=== PATIENT | female | born 1975 | race Caucasian/White ===

== ENCOUNTER 2016-07-11 12:26 | Outpatient (CLI) | payer OTHER | END 2016-07-11 12:27 | disposition home or self-care (01) | DX: Z00.00 Encounter for general adult medical examination without abnormal findings (principal) ==

== ENCOUNTER 2016-09-14 09:38 | Outpatient (CLI) | payer OTHER | END 2016-09-14 23:59 | DX: L40.50 Arthropathic psoriasis, unspecified (principal); Z79.899 Other long term (current) drug therapy ==

== ENCOUNTER 2017-02-25 07:46 | Outpatient (CLI) | payer OTHER ==
[2017-02-25] MEDS ORDERED: GADOBUTROL 10 MMOL/10 ML VIAL ONE (07:59)
[2017-02-25] MEDS ORDERED: GADOBUTROL 10 MMOL/10 ML VIAL IVP ONE (08:26)
--- NOTE | 2017-02-25 15:23 | MRI Report ---
EXAM: MRI BRAIN WITHOUT AND WITH CONTRAST EXAM DATE: 02/25/2017 08:54 AM. CLINICAL HISTORY: NEUROPATHY. Blurred vision and episodes of tingling. Clinical concern is indicated on the requisition for multiple sclerosis. COMPARISON: None. TECHNIQUE: Multiplanar, multisequence T1-weighted and fluid-sensitive MR sequences of the brain were performed. Sequences optimized for White matter evaluation. Other: None. Without and with IV Contrast : Without and with 8.5 mL Gadavist. FINDINGS: Brain Volume: Normal for age. Parenchyma/Dura: No acute hemorrhage, mass, or acute infarct. No white matter lesions identified. Ventricles/Cisterns: No hydrocephalus. Sinuses: No acute appearing sinus disease. Bones: Normal. Other: None. IMPRESSION: Normal brain MRI. No MRI evidence for demyelinating disease. [facility] Referring Provider Line: [phone] SITE ID: [id number]
== END 2017-02-25 07:47 | disposition home or self-care (01) ==
LOC: DI 07:46
PROVIDERS: ATTEND Physician Assistant Medical
DX: G62.9 Polyneuropathy, unspecified (principal)
CPT/HCPCS: 70553; A9585

== ENCOUNTER 2017-08-31 08:00 | Outpatient (CLI) | payer BC, OTHER ==
[2017-08-31 12:37] LABS: CHOL/HDL RATIO 3.6 (<4.4); CHOLESTEROL 218 mg/dL; HDL CHOLESTEROL 60 mg/dL; LDL CHOLESTEROL,CALCULATED 144 mg/dL; LDL/HDL RATIO 2.4 (<4.4); VLDL CHOLESTEROL 14 mg/dL
== END 2017-08-31 08:01 ==
LOC: LAB.WCP 08:00
PROVIDERS: ATTEND Physician Assistant Medical
DX: Z00.00 Encounter for general adult medical examination without abnormal findings (principal)
CPT/HCPCS: 36415; 80061; 83721

== ENCOUNTER 2017-09-08 07:04 | Outpatient (CLI) | payer BC ==
[2017-09-08 12:52] LABS: BASOPHILS % (AUTO) 0.4 %; EOSINOPHILS # (AUTO) 0.1 10^3/uL (0.0-0.7); HGB - HEMOGLOBIN 13.5 g/dL (12.0-16.0); LYMPHOCYTES # (AUTO) 2.3 10^3/uL (1.5-3.5); LYMPHOCYTES % (AUTO) 27.8 %; MEAN CORPUSCULAR HEMOGLOBIN 30.9 pg (27.0-31.0); MEAN CORPUSCULAR HGB CONC 33.4 g/dL (32.0-36.0); MEAN CORPUSCULAR VOLUME 92.6 fL (81.0-99.0); MONOCYTES # (AUTO) 0.5 10^3/uL (0.0-1.0); MONOCYTES % (AUTO) 6.5 %; NEUTROPHILS # (AUTO) 5.2 10^3/uL (1.5-6.6); NEUTROPHILS % (AUTO) 64.3 %; PLT - PLATELET COUNT 322 10^3/uL (130-450); RED BLOOD COUNT 4.38 10^6/uL (4.20-5.40); RED CELL DISTRIBUTION WIDTH 13.3 % (12.0-15.0); WHITE BLOOD COUNT 8.2 x10^3/uL (4.8-10.8)
[2017-09-08 13:11] LABS: ALBUMIN 4.2 g/dL (3.2-5.5); ALBUMIN/GLOBULIN RATIO 1.4 (1.0-2.2); ALKALINE PHOSPHATASE 56 IU/L (42-121); ALT ALANINE AMINOTRANSFERASE 18 IU/L (10-60); AST ASPARTATE AMINOTRANSFERASE 16 IU/L (10-42); BILIRUBIN,TOTAL 1.1 mg/dL (0.2-1.0); BUN - BLOOD UREA NITROGEN 5 mg/dL (6-20); CALCIUM 9.2 mg/dL (8.5-10.3); CARBON DIOXIDE - CO2 24 mmol/L (21-32); CHLORIDE 105 mmol/L (101-111); CREATININE 0.6 mg/dL (0.4-1.0); GFR - MDRD 110 (>89); GLUCOSE 99 mg/dL (70-100); SODIUM 136 mmol/L (135-145); TOTAL PROTEIN 7.3 g/dL (6.7-8.2)
[2017-09-08 13:15] LABS: CRP - C-REACTIVE PROTEIN < 1.0 mg/dL (0-1.0)
== END 2017-09-08 07:05 | disposition home or self-care (01) ==
LOC: LAB.WCP 07:04
PROVIDERS: ATTEND Internal Medicine Rheumatology
DX: L40.50 Arthropathic psoriasis, unspecified (principal); Z79.899 Other long term (current) drug therapy
CPT/HCPCS: 36415; 80053; 85025; 86140

== ENCOUNTER 2017-12-24 20:09 | Emergency (ER) | payer BC ==
[2017-12-24 20:28] VITALS: BP 131/86
[2017-12-24] MEDS ORDERED: BUFFERED LIDOCAINE 10 ML SYRINGE SUBQ STA (20:58)
--- NOTE | 2017-12-24 21:00 | ED Physician Documentation ---
PD HPI UPPER EXT INJURY - Stated complaint Stated Complaint: THUMB LAC - Chief complaint Chief Complaint: Laceration - History obtained from History obtained from: Patient - History of Present Illness Location: Right, Finger Type of injury: Laceration (on a mandolin slicer at home) Review of Systems Constitutional: reports: Reviewed and negative Ears: reports: Reviewed and negative Throat: reports: Reviewed and negative PD PAST MEDICAL HISTORY - Present Medications Home Medications: Ambulatory Orders Medication Instructions Recorded Confirmed Adalimumab [Humira] 12/24/17 Bupropion HCl [Bupropion HCl Sr] 12/24/17 Methotrexate Sodium/Pf mg IJ 12/24/17 [Methotrexate 25 mg/ml Vial] Naltrexone HCl 12/24/17 - Allergies Allergies/Adverse Reactions: Allergies Allergy/AdvReac Type Severity Reaction Status Date / Time No Known Drug Allergies Allergy Verified 12/24/17 20:28 PD ED PE NORMAL - Vitals Vital signs reviewed: Yes - General General: Alert and oriented X 3, No acute distress - Extremities Extremities: Other (There is a flap laceration measuring a centimeter on the radial side of the tip of the right thumb.) - Neuro Neuro: Alert and oriented X 3, Normal speech Results - Vitals Vitals: Vital Signs - 24 hr 12/24/17 20:26 Temperature 36.8 C Heart Rate 75 Respiratory 18 Rate Blood Pressure 131/86 H O2 Saturation 98 Oxygen O2 Source Room air Procedures - Laceration (location) R thumb Length in cm: 1 Wound type: Curved, Flap Neurovascular status: Sensory intact, Motor intact, Vascular intact Anesthesia: Lidocaine 1%, With bicarb Wound Preparation: Hibiclens, Irrigated copiously NS Skin layer closure: Nylon, Interrupted, Size #-0 - enter number (5-0), Sutures - enter # (3) Other: Tetanus UTD Complexity: Simple PD MEDICAL DECISION MAKING - Sepsis Event Vital Signs: Vital Signs - 24 hr 12/24/17 20:26 Temperature 36.8 C Heart Rate 75 Respiratory 18 Rate Blood Pressure 131/86 H O2 Saturation 98 Oxygen O2 Source Room air Departure - Departure Disposition: 01 Home, Self Care Clinical Impression: Laceration Condition: Good Record reviewed to determine appropriate education?: Yes Instructions: ED Laceration Hand Comments: Come back for any signs of infection which would include: Redness, swelling, drainage, increased pain, or fevers. Follow-up with your physician in 14 days for suture removal. Your blood pressure was elevated today on check into the emergency department. This does not mean that you have hypertension, it is a common phenomenon to come to the emergency department and have elevated blood pressure. I recommend that you see your primary care physician within the week to have it rechecked when you are feeling better.
== END 2017-12-24 21:51 | disposition home or self-care (01) ==
LOC: ED 20:09
DX: S61.011A Laceration without foreign body of right thumb without damage to nail, initial encounter (principal); W26.0XXA Contact with knife, initial encounter; Y92.009 Unspecified place in unspecified non-institutional (private) residence as the place of occurrence of the external cause; R03.0 Elevated blood-pressure reading, without diagnosis of hypertension
CPT/HCPCS: 12001; 99282; 99283

== ENCOUNTER 2018-01-12 14:29 | Outpatient (CLI) | payer BC ==
[2018-01-12 19:10] LABS: BASOPHILS # (AUTO) 0.1 10^3/uL (0.0-0.1); BASOPHILS % (AUTO) 0.5 %; EOSINOPHILS # (AUTO) 0.1 10^3/uL (0.0-0.7); EOSINOPHILS % (AUTO) 0.7 %; HGB - HEMOGLOBIN 13.5 g/dL (12.0-16.0); LYMPHOCYTES # (AUTO) 2.8 10^3/uL (1.5-3.5); LYMPHOCYTES % (AUTO) 24.1 %; MEAN CORPUSCULAR HEMOGLOBIN 30.8 pg (27.0-31.0); MEAN CORPUSCULAR HGB CONC 33.2 g/dL (32.0-36.0); MEAN CORPUSCULAR VOLUME 92.6 fL (81.0-99.0); MONOCYTES # (AUTO) 0.7 10^3/uL (0.0-1.0); MONOCYTES % (AUTO) 5.6 %; NEUTROPHILS % (AUTO) 69.1 %; PLT - PLATELET COUNT 324 10^3/uL (130-450); RED BLOOD COUNT 4.39 10^6/uL (4.20-5.40); RED CELL DISTRIBUTION WIDTH 13.6 % (12.0-15.0); WHITE BLOOD COUNT 11.5 x10^3/uL (4.8-10.8)
[2018-01-12 19:36] LABS: ALBUMIN 4.3 g/dL (3.2-5.5); ALBUMIN/GLOBULIN RATIO 1.3 (1.0-2.2); ALKALINE PHOSPHATASE 55 IU/L (42-121); ALT ALANINE AMINOTRANSFERASE 23 IU/L (10-60); AST ASPARTATE AMINOTRANSFERASE 19 IU/L (10-42); BILIRUBIN,TOTAL 0.7 mg/dL (0.2-1.0); BUN - BLOOD UREA NITROGEN 10 mg/dL (6-20); CALCIUM 9.2 mg/dL (8.5-10.3); CARBON DIOXIDE - CO2 26 mmol/L (21-32); CHLORIDE 103 mmol/L (101-111); CREATININE 0.8 mg/dL (0.4-1.0); GFR - MDRD 79 (>89); GLUCOSE 114 mg/dL (70-100); SODIUM 137 mmol/L (135-145); TOTAL PROTEIN 7.5 g/dL (6.7-8.2)
[2018-01-12 20:31] LABS: CRP - C-REACTIVE PROTEIN < 1.0 mg/dL (0-1.0)
== END 2018-01-12 14:30 | disposition home or self-care (01) ==
LOC: LAB.WCP 14:29
PROVIDERS: ATTEND Internal Medicine Rheumatology
DX: L40.50 Arthropathic psoriasis, unspecified (principal); Z79.899 Other long term (current) drug therapy
CPT/HCPCS: 36415; 80053; 85025; 86140

== ENCOUNTER 2018-07-16 08:43 | Outpatient (CLI) | payer BC ==
[2018-07-16 12:34] LABS: BASOPHILS % (AUTO) 0.4 %; EOSINOPHILS # (AUTO) 0.1 10^3/uL (0.0-0.7); EOSINOPHILS % (AUTO) 0.6 %; HGB - HEMOGLOBIN 13.8 g/dL (12.0-16.0); LYMPHOCYTES # (AUTO) 2.6 10^3/uL (1.5-3.5); LYMPHOCYTES % (AUTO) 28.8 %; MEAN CORPUSCULAR HEMOGLOBIN 30.9 pg (27.0-31.0); MEAN CORPUSCULAR HGB CONC 33.7 g/dL (32.0-36.0); MEAN CORPUSCULAR VOLUME 91.9 fL (81.0-99.0); MEAN PLATELET VOLUME 9.9 fL (7.9-10.8); MONOCYTES # (AUTO) 0.7 10^3/uL (0.0-1.0); MONOCYTES % (AUTO) 7.4 %; NEUTROPHILS # (AUTO) 5.6 10^3/uL (1.5-6.6); NEUTROPHILS % (AUTO) 62.8 %; PLT - PLATELET COUNT 338 10^3/uL (130-450); RED BLOOD COUNT 4.46 10^6/uL (4.20-5.40); RED CELL DISTRIBUTION WIDTH 13.4 % (12.0-15.0)
[2018-07-16 12:58] LABS: ALBUMIN/GLOBULIN RATIO 1.3 (1.0-2.2); ALKALINE PHOSPHATASE 51 IU/L (42-121); ALT ALANINE AMINOTRANSFERASE 16 IU/L (10-60); AST ASPARTATE AMINOTRANSFERASE 17 IU/L (10-42); BILIRUBIN,TOTAL 1.1 mg/dL (0.2-1.0); BUN - BLOOD UREA NITROGEN 11 mg/dL (6-20); CARBON DIOXIDE - CO2 26 mmol/L (21-32); CHLORIDE 102 mmol/L (101-111); CREATININE 0.6 mg/dL (0.4-1.0); GFR - MDRD 110 (>89); GLUCOSE 96 mg/dL (70-100); SODIUM 136 mmol/L (135-145); TOTAL PROTEIN 7.2 g/dL (6.7-8.2)
[2018-07-16 13:02] LABS: CRP - C-REACTIVE PROTEIN < 1.0 mg/dL (0-1.0)
== END 2018-07-16 08:44 ==
LOC: LAB.WCP 08:43
PROVIDERS: ATTEND Internal Medicine Rheumatology
DX: L40.50 Arthropathic psoriasis, unspecified (principal); Z79.899 Other long term (current) drug therapy
CPT/HCPCS: 36415; 80053; 85025; 86140

== ENCOUNTER 2018-12-04 08:53 | Outpatient (CLI) | payer BC ==
--- NOTE | 2018-12-05 09:12 | Mammography Report ---
Reason: SCREENING MAMMO Procedure Date: 12/04/2018 Accession Number: [id number] / [id number] Procedure: MGN - Screening Mammo Dig Bilat CPT Code: FULL RESULT: EXAM: Screening Mammo Dig Bilat DATE: 12/04/2018 9:25 AM CLINICAL HISTORY: Screening encounter. No reported risk factors. Baseline mammogram. TECHNIQUE: (B) - Bilateral CC and MLO views were obtained. COMPARISON: None PARENCHYMAL PATTERN: (D) - The breast(s) demonstrate(s) heterogeneously dense fibroglandular parenchyma. FINDINGS: There are no suspicious masses, calcifications, or areas of distortion. IMPRESSION: Negative examination. BI-RADS category 1. RECOMMENDATION: (ANNUAL) - Recommend routine annual screening mammography. BI-RADS CATEGORY: (1) - Negative. STANDARD QUALIFYING STATEMENTS: 1. This examination was not reviewed with the aid of Computer-Aided Detection (CAD). 2. A negative or benign imaging report should not preclude biopsy if clinically suspicious findings are present. 3. Dense breasts may obscure an underlying neoplasm. 4. This examination was reviewed without the aid of 3D breast imaging (tomosynthesis).
== END 2018-12-04 08:54 | disposition home or self-care (01) ==
LOC: DI.N 08:53
DX: Z12.31 Encounter for screening mammogram for malignant neoplasm of breast (principal)
CPT/HCPCS: 77067

== ENCOUNTER 2018-12-27 08:00 | Outpatient (CLI) | payer BC ==
[2018-12-27 13:28] LABS: H. PYLORIS ANTIGEN STL NEGATIVE (Negative)
== END 2018-12-27 23:59 | disposition home or self-care (01) ==
LOC: LAB.WCP 08:00
PROVIDERS: ATTEND Physician Assistant Medical
DX: K21.9 Gastro-esophageal reflux disease without esophagitis (principal)
CPT/HCPCS: 87338

== ENCOUNTER 2019-02-18 08:00 | Outpatient (CLI) | payer BC ==
[2019-02-18 12:31] LABS: BASOPHILS % (AUTO) 0.4 %; EOSINOPHILS # (AUTO) 0.1 10^3/uL (0.0-0.7); EOSINOPHILS % (AUTO) 1.4 %; HGB - HEMOGLOBIN 13.8 g/dL (12.0-16.0); LYMPHOCYTES # (AUTO) 2.7 10^3/uL (1.5-3.5); LYMPHOCYTES % (AUTO) 33.9 %; MEAN CORPUSCULAR HEMOGLOBIN 30.6 pg (27.0-31.0); MEAN CORPUSCULAR HGB CONC 31.7 g/dL (32.0-36.0); MEAN CORPUSCULAR VOLUME 96.7 fL (81.0-99.0); MEAN PLATELET VOLUME 11.9 fL (7.9-10.8); MONOCYTES # (AUTO) 0.5 10^3/uL (0.0-1.0); MONOCYTES % (AUTO) 6.8 %; NEUTROPHILS # (AUTO) 4.6 10^3/uL (1.5-6.6); NEUTROPHILS % (AUTO) 57.2 %; PLT - PLATELET COUNT 359 10^3/uL (130-450); RED BLOOD COUNT 4.51 10^6/uL (4.20-5.40); WHITE BLOOD COUNT 7.9 x10^3/uL (4.8-10.8)
[2019-02-18 12:55] LABS: ALBUMIN 4.4 g/dL (3.2-5.5); ALBUMIN/GLOBULIN RATIO 1.5 (1.0-2.2); ALKALINE PHOSPHATASE 53 IU/L (42-121); ALT ALANINE AMINOTRANSFERASE 16 IU/L (10-60); AST ASPARTATE AMINOTRANSFERASE 16 IU/L (10-42); BILIRUBIN,TOTAL 0.6 mg/dL (0.2-1.0); BUN - BLOOD UREA NITROGEN 17 mg/dL (6-20); CALCIUM 9.3 mg/dL (8.5-10.3); CARBON DIOXIDE - CO2 28 mmol/L (21-32); CHLORIDE 105 mmol/L (101-111); CREATININE 0.7 mg/dL (0.4-1.0); GFR - MDRD 92 (>89); GLUCOSE 103 mg/dL (70-100); SODIUM 138 mmol/L (135-145); TOTAL PROTEIN 7.4 g/dL (6.7-8.2)
[2019-02-18 12:58] LABS: CRP - C-REACTIVE PROTEIN < 1.0 mg/dL (0-1.0)
== END 2019-02-18 23:59 | disposition home or self-care (01) ==
LOC: LAB.WCP 08:00
PROVIDERS: ATTEND Internal Medicine Rheumatology
DX: L40.50 Arthropathic psoriasis, unspecified (principal); Z79.899 Other long term (current) drug therapy
CPT/HCPCS: 36415; 80053; 85025; 86140

== ENCOUNTER 2019-05-29 07:51 | Outpatient (CLI) | payer BC, OTHER ==
[2019-05-29 12:52] LABS: ALBUMIN 4.5 g/dL (3.2-5.5); ALBUMIN/GLOBULIN RATIO 1.6 (1.0-2.2); ALKALINE PHOSPHATASE 48 IU/L (42-121); ALT ALANINE AMINOTRANSFERASE 20 IU/L (10-60); AST ASPARTATE AMINOTRANSFERASE 22 IU/L (10-42); BILIRUBIN,TOTAL 1.6 mg/dL (0.2-1.0); BUN - BLOOD UREA NITROGEN 10 mg/dL (6-20); CALCIUM 9.1 mg/dL (8.5-10.3); CARBON DIOXIDE - CO2 25 mmol/L (21-32); CHLORIDE 106 mmol/L (101-111); CHOL/HDL RATIO 4.2 (<4.4); CHOLESTEROL 218 mg/dL; CREATININE 0.8 mg/dL (0.4-1.0); GFR - MDRD 79 (>89); GLUCOSE 96 mg/dL (70-100); HDL CHOLESTEROL 52 mg/dL; LDL CHOLESTEROL,CALCULATED 151 mg/dL; LDL/HDL RATIO 2.9 (<4.4); SODIUM 140 mmol/L (135-145); TOTAL PROTEIN 7.3 g/dL (6.7-8.2); VLDL CHOLESTEROL 15 mg/dL
== END 2019-05-29 23:59 | disposition home or self-care (01) ==
LOC: LAB.WCP 07:51
PROVIDERS: ATTEND Physician Assistant Medical
DX: Z00.00 Encounter for general adult medical examination without abnormal findings (principal); E78.5 Hyperlipidemia, unspecified
CPT/HCPCS: 36415; 80053; 80061; 83721

== ENCOUNTER 2019-10-02 13:00 | Outpatient (CLI) | payer OTHER | END 2019-10-02 23:59 | disposition home or self-care (01) | LOC: LAB.R 13:00 | PROVIDERS: ATTEND Physician Assistant Medical | DX: R10.2 Pelvic and perineal pain (principal) | CPT/HCPCS: 87086 ==

== ENCOUNTER 2019-12-23 08:00 | Outpatient (CLI) | payer OTHER ==
[2019-12-23 18:12] LABS: BASOPHILS # (AUTO) 0.1 10^3/uL (0.0-0.1); BASOPHILS % (AUTO) 0.7 %; EOSINOPHILS # (AUTO) 0.1 10^3/uL (0.0-0.7); EOSINOPHILS % (AUTO) 0.7 %; HGB - HEMOGLOBIN 12.3 g/dL (12.0-16.0); LYMPHOCYTES # (AUTO) 3.6 10^3/uL (1.5-3.5); LYMPHOCYTES % (AUTO) 39.3 %; MEAN CORPUSCULAR HEMOGLOBIN 30.4 pg (27.0-31.0); MEAN PLATELET VOLUME 11.9 fL (7.9-10.8); MONOCYTES # (AUTO) 0.6 10^3/uL (0.0-1.0); MONOCYTES % (AUTO) 6.2 %; NEUTROPHILS # (AUTO) 4.9 10^3/uL (1.5-6.6); NEUTROPHILS % (AUTO) 52.7 %; PLT - PLATELET COUNT 288 10^3/uL (130-450); RED BLOOD COUNT 4.04 10^6/uL (4.20-5.40); RED CELL DISTRIBUTION WIDTH 12.7 % (12.0-15.0); WHITE BLOOD COUNT 9.2 x10^3/uL (4.8-10.8)
[2019-12-23 18:40] LABS: ALBUMIN 4.3 g/dL (3.2-5.5); ALBUMIN/GLOBULIN RATIO 1.7 (1.0-2.2); BILIRUBIN,TOTAL 1.1 mg/dL (0.2-1.0); CALCIUM 9.3 mg/dL (8.5-10.3); CREATININE 0.6 mg/dL (0.4-1.0); TOTAL PROTEIN 6.9 g/dL (6.7-8.2)
== END 2019-12-23 23:59 | disposition home or self-care (01) ==
LOC: LAB.WCP 08:00
PROVIDERS: ATTEND Physician Assistant Medical
DX: L40.50 Arthropathic psoriasis, unspecified (principal)
CPT/HCPCS: 36415; 80053; 85025; 85651; 87086

== ENCOUNTER 2020-03-18 15:02 | Outpatient (CLI) | payer OTHER ==
--- NOTE | 2020-03-18 16:13 | XRAY Report ---
PROCEDURE: Tib/Fib LT INDICATIONS: LEG PAIN,LEFT TECHNIQUE: 2 views of the tibia and fibula were acquired. COMPARISON: None FINDINGS: Bones: No fractures or dislocations. No suspicious bony lesions. Soft tissues: No suspicious soft tissue calcifications or masses. IMPRESSION: Normal for age, source of current symptoms is not seen. Reviewed by: Ronnie Dunlap MD on 03/18/2020 4:12 PM PDT Approved by: Ronnie Dunlap MD on 03/18/2020 4:12 PM PDT Station ID: [id number]
== END 2020-03-18 15:03 | disposition home or self-care (01) ==
LOC: DI 15:02
PROVIDERS: ATTEND Family Medicine
DX: M79.605 Pain in left leg (principal)

== ENCOUNTER 2020-04-15 08:00 | Outpatient (CLI) | payer OTHER ==
[2020-04-15 18:49] LABS: BASOPHILS % (AUTO) 0.4 %; EOSINOPHILS # (AUTO) 0.1 10^3/uL (0.0-0.7); EOSINOPHILS % (AUTO) 0.5 %; HGB - HEMOGLOBIN 12.9 g/dL (12.0-16.0); LYMPHOCYTES # (AUTO) 2.5 10^3/uL (1.5-3.5); LYMPHOCYTES % (AUTO) 26.9 %; MEAN CORPUSCULAR HEMOGLOBIN 31.2 pg (27.0-31.0); MEAN CORPUSCULAR HGB CONC 32.1 g/dL (32.0-36.0); MEAN CORPUSCULAR VOLUME 97.1 fL (81.0-99.0); MEAN PLATELET VOLUME 11.7 fL (7.9-10.8); MONOCYTES # (AUTO) 0.5 10^3/uL (0.0-1.0); MONOCYTES % (AUTO) 5.7 %; NEUTROPHILS # (AUTO) 6.2 10^3/uL (1.5-6.6); PLT - PLATELET COUNT 298 10^3/uL (130-450); RED BLOOD COUNT 4.14 10^6/uL (4.20-5.40); RED CELL DISTRIBUTION WIDTH 12.6 % (12.0-15.0); WHITE BLOOD COUNT 9.4 x10^3/uL (4.8-10.8)
[2020-04-15 19:18] LABS: ALBUMIN 4.4 g/dL (3.2-5.5); ALBUMIN/GLOBULIN RATIO 1.6 (1.0-2.2); BILIRUBIN,TOTAL 1.4 mg/dL (0.2-1.0); CALCIUM 9.4 mg/dL (8.5-10.3); CREATININE 0.6 mg/dL (0.4-1.0); TOTAL PROTEIN 7.1 g/dL (6.7-8.2)
== END 2020-04-15 23:59 | disposition home or self-care (01) ==
LOC: LAB.WCP 08:00
PROVIDERS: ATTEND Internal Medicine Rheumatology
DX: L40.50 Arthropathic psoriasis, unspecified (principal)
CPT/HCPCS: 36415; 80053; 85025; 85651

== ENCOUNTER 2020-09-07 08:00 | Outpatient (CLI) | payer OTHER ==
[2020-09-07 13:14] LABS: ALBUMIN 4.4 g/dL (3.2-5.5); ALBUMIN/GLOBULIN RATIO 1.6 (1.0-2.2); ALKALINE PHOSPHATASE 39 IU/L (42-121); ALT ALANINE AMINOTRANSFERASE 21 IU/L (10-60); AST ASPARTATE AMINOTRANSFERASE 18 IU/L (10-42); BILIRUBIN,TOTAL 0.9 mg/dL (0.2-1.0); BUN - BLOOD UREA NITROGEN 14 mg/dL (6-20); CALCIUM 9.6 mg/dL (8.5-10.3); CARBON DIOXIDE - CO2 27 mmol/L (21-32); CHLORIDE 109 mmol/L (101-111); CHOL/HDL RATIO 3.6 (<4.4); CHOLESTEROL 227 mg/dL; CREATININE 0.7 mg/dL (0.4-1.0); GFR - MDRD 91 (>89); GLUCOSE 105 mg/dL (70-100); HDL CHOLESTEROL 63 mg/dL; LDL CHOLESTEROL,CALCULATED 154 mg/dL; LDL/HDL RATIO 2.4 (<4.4); POTASSIUM 4.4 mmol/L (3.5-5.0); SODIUM 143 mmol/L (135-145); TOTAL PROTEIN 7.2 g/dL (6.7-8.2); TRIGLYCERIDES 51 mg/dL; VLDL CHOLESTEROL 10 mg/dL
[2020-09-07 13:18] LABS: THYROID STIMULATING HORMONE 0.74 uIU/mL (0.34-5.60)
== END 2020-09-07 23:59 | disposition home or self-care (01) ==
LOC: LAB.WCP 08:00
PROVIDERS: ATTEND Physician Assistant Medical
DX: Z00.00 Encounter for general adult medical examination without abnormal findings (principal); E78.5 Hyperlipidemia, unspecified
CPT/HCPCS: 36415; 80053; 80061; 83721; 84443

== ENCOUNTER 2020-12-14 10:50 | Outpatient (CLI) | payer OTHER ==
--- NOTE | 2020-12-15 12:59 | Mammography Report ---
BILATERAL DIGITAL SCREENING MAMMOGRAM 3D/2D: 12/14/2020 CLINICAL: Routine screening. Comparison is made to exam dated: 12/04/2018 mammogram - [facility]. The tissue of both breasts is heterogeneously dense. This may lower the sensitivity of mammography. No significant masses, calcifications, or other findings are seen in either breast. There has been no significant interval change. IMPRESSION: NEGATIVE There is no mammographic evidence of malignancy. A 1 year screening mammogram is recommended. This exam was interpreted at Station ID: [id number]. NOTE: For mammograms, a report in lay terms will be sent to the patient. Approximately 15% of breast malignancies will not be visualized mammographically. In the management of a palpable breast mass, a negative mammogram must not discourage biopsy of a clinically suspicious lesion. Electronically Signed By: Asael Marie M.D., jr/wagner:12/14/2020 11:25:25 ACR BI-RADS Category 1: Negative 3341F PARENCHYMAL PATTERN: (D) - The breast(s) demonstrate(s) heterogeneously dense fibroglandular miguelina jamison. BI-RADS CATEGORY: (1) - 1 RECOMMENDATION: (ANNUAL) - Recommend routine annual screening mammography. [id number] 1 year screening LATERALITY: (B)
== END 2020-12-14 10:51 | disposition home or self-care (01) ==
LOC: DI 10:50
DX: Z12.31 Encounter for screening mammogram for malignant neoplasm of breast (principal)

== ENCOUNTER 2021-03-03 15:16 | Outpatient (CLI) | payer OTHER ==
[2021-03-03 18:26] LABS: BASOPHILS % (AUTO) 0.4 %; EOSINOPHILS # (AUTO) 0.1 10^3/uL (0.0-0.7); EOSINOPHILS % (AUTO) 0.8 %; HCT - HEMATOCRIT 41.8 % (37.0-47.0); HGB - HEMOGLOBIN 13.4 g/dL (12.0-16.0); LYMPHOCYTES # (AUTO) 2.9 10^3/uL (1.5-3.5); LYMPHOCYTES % (AUTO) 36.7 %; MEAN CORPUSCULAR HEMOGLOBIN 30.4 pg (27.0-31.0); MEAN CORPUSCULAR HGB CONC 32.1 g/dL (32.0-36.0); MEAN CORPUSCULAR VOLUME 94.8 fL (81.0-99.0); MEAN PLATELET VOLUME 11.6 fL (7.9-10.8); MONOCYTES # (AUTO) 0.5 10^3/uL (0.0-1.0); MONOCYTES % (AUTO) 5.6 %; NEUTROPHILS # (AUTO) 4.5 10^3/uL (1.5-6.6); NEUTROPHILS % (AUTO) 56.2 %; PLT - PLATELET COUNT 351 10^3/uL (130-450); RED BLOOD COUNT 4.41 10^6/uL (4.20-5.40); RED CELL DISTRIBUTION WIDTH 12.6 % (12.0-15.0)
[2021-03-03 18:37] LABS: ALBUMIN 4.5 g/dL (3.2-5.5); ALBUMIN/GLOBULIN RATIO 1.5 (1.0-2.2); BILIRUBIN,TOTAL 0.8 mg/dL (0.2-1.0); CALCIUM 9.3 mg/dL (8.5-10.3); CREATININE 0.8 mg/dL (0.4-1.0); POTASSIUM 3.9 mmol/L (3.5-5.0); TOTAL PROTEIN 7.5 g/dL (6.7-8.2)
== END 2021-03-03 23:59 | disposition home or self-care (01) ==
LOC: LAB.WCP 15:16
PROVIDERS: ATTEND Physician Assistant Medical
DX: L40.50 Arthropathic psoriasis, unspecified (principal)
CPT/HCPCS: 36415; 80053; 85025; 85651

== ENCOUNTER 2021-08-27 07:38 | Outpatient (CLI) | payer OTHER ==
[2021-08-27 07:51] LABS: BASOPHILS % (AUTO) 0.6 %; EOSINOPHILS # (AUTO) 0.1 10^3/uL (0.0-0.7); EOSINOPHILS % (AUTO) 1.1 %; HCT - HEMATOCRIT 42.5 % (37.0-47.0); HGB - HEMOGLOBIN 13.8 g/dL (12.0-16.0); LYMPHOCYTES # (AUTO) 2.3 10^3/uL (1.5-3.5); LYMPHOCYTES % (AUTO) 34.7 %; MEAN CORPUSCULAR HEMOGLOBIN 30.4 pg (27.0-31.0); MEAN CORPUSCULAR HGB CONC 32.5 g/dL (32.0-36.0); MEAN CORPUSCULAR VOLUME 93.6 fL (81.0-99.0); MEAN PLATELET VOLUME 10.6 fL (7.9-10.8); MONOCYTES # (AUTO) 0.4 10^3/uL (0.0-1.0); MONOCYTES % (AUTO) 6.3 %; NEUTROPHILS # (AUTO) 3.7 10^3/uL (1.5-6.6); PLT - PLATELET COUNT 346 10^3/uL (130-450); RED BLOOD COUNT 4.54 10^6/uL (4.20-5.40); WHITE BLOOD COUNT 6.5 x10^3/uL (4.8-10.8)
[2021-08-27 08:15] LABS: ALBUMIN 4.6 g/dL (3.2-5.5); ALBUMIN/GLOBULIN RATIO 1.6 (1.0-2.2); ALKALINE PHOSPHATASE 46 IU/L (42-121); ALT ALANINE AMINOTRANSFERASE 24 IU/L (10-60); AST ASPARTATE AMINOTRANSFERASE 21 IU/L (10-42); BILIRUBIN,TOTAL 1.2 mg/dL (0.2-1.0); BUN - BLOOD UREA NITROGEN 12 mg/dL (6-20); CALCIUM 9.1 mg/dL (8.5-10.3); CARBON DIOXIDE - CO2 28 mmol/L (21-32); CHLORIDE 102 mmol/L (101-111); CHOL/HDL RATIO 4.2 (<4.4); CHOLESTEROL 250 mg/dL; CREATININE 0.7 mg/dL (0.4-1.0); GFR - MDRD 91 (>89); GLUCOSE 103 mg/dL (70-100); HDL CHOLESTEROL 60 mg/dL; LDL CHOLESTEROL,CALCULATED 176 mg/dL; LDL/HDL RATIO 2.9 (<4.4); SODIUM 139 mmol/L (135-145); TOTAL PROTEIN 7.4 g/dL (6.7-8.2); TRIGLYCERIDES 71 mg/dL; VLDL CHOLESTEROL 14 mg/dL
[2021-08-27 08:25] LABS: THYROID STIMULATING HORMONE 0.75 uIU/mL (0.34-5.60)
== END 2021-08-27 07:39 | disposition home or self-care (01) ==
LOC: LAB 07:38
PROVIDERS: ATTEND Physician Assistant Medical
DX: Z00.00 Encounter for general adult medical examination without abnormal findings (principal); E78.5 Hyperlipidemia, unspecified
CPT/HCPCS: 36415; 80053; 80061; 83721; 84443; 85025

== ENCOUNTER 2021-10-29 15:27 | Outpatient (CLI) | payer OTHER ==
[2021-10-29 15:46] LABS: BASOPHILS # (AUTO) 0.1 10^3/uL (0.0-0.1); BASOPHILS % (AUTO) 0.4 %; EOSINOPHILS % (AUTO) 0.3 %; HGB - HEMOGLOBIN 13.5 g/dL (12.0-16.0); LYMPHOCYTES # (AUTO) 3.7 10^3/uL (1.5-3.5); LYMPHOCYTES % (AUTO) 30.3 %; MEAN CORPUSCULAR HGB CONC 33.8 g/dL (32.0-36.0); MEAN PLATELET VOLUME 10.5 fL (7.9-10.8); MONOCYTES # (AUTO) 0.7 10^3/uL (0.0-1.0); NEUTROPHILS # (AUTO) 7.6 10^3/uL (1.5-6.6); NEUTROPHILS % (AUTO) 62.7 %; PLT - PLATELET COUNT 379 10^3/uL (130-450); RED BLOOD COUNT 4.35 10^6/uL (4.20-5.40); RED CELL DISTRIBUTION WIDTH 12.4 % (12.0-15.0); WHITE BLOOD COUNT 12.2 x10^3/uL (4.8-10.8)
[2021-10-29 16:04] LABS: ALBUMIN 4.5 g/dL (3.2-5.5); ALBUMIN/GLOBULIN RATIO 1.4 (1.0-2.2); BILIRUBIN,TOTAL 1.3 mg/dL (0.2-1.0); CALCIUM 9.3 mg/dL (8.5-10.3); CREATININE 0.8 mg/dL (0.4-1.0); POTASSIUM 3.8 mmol/L (3.5-5.0); TOTAL PROTEIN 7.8 g/dL (6.7-8.2)
[2021-10-29 16:21] LABS: THYROID STIMULATING HORMONE 1.4 uIU/mL (0.34-5.60)
== END 2021-10-29 15:28 | disposition home or self-care (01) ==
LOC: LAB 15:27
PROVIDERS: ATTEND Internal Medicine Rheumatology
DX: R53.83 Other fatigue (principal); L40.50 Arthropathic psoriasis, unspecified
CPT/HCPCS: 36415; 80053; 84443; 85025; 85651

== ENCOUNTER 2022-05-19 08:39 | Outpatient (CLI) | payer OTHER ==
[2022-05-19 09:03] LABS: BASOPHILS % (AUTO) 0.6 %; EOSINOPHILS # (AUTO) 0.1 10^3/uL (0.0-0.7); EOSINOPHILS % (AUTO) 1.2 %; HGB - HEMOGLOBIN 13.3 g/dL (12.0-16.0); LYMPHOCYTES % (AUTO) 29.5 %; MEAN CORPUSCULAR HEMOGLOBIN 30.4 pg (27.0-31.0); MEAN CORPUSCULAR HGB CONC 32.4 g/dL (32.0-36.0); MEAN CORPUSCULAR VOLUME 93.6 fL (81.0-99.0); MEAN PLATELET VOLUME 10.7 fL (7.9-10.8); MONOCYTES # (AUTO) 0.5 10^3/uL (0.0-1.0); MONOCYTES % (AUTO) 7.2 %; NEUTROPHILS # (AUTO) 4.2 10^3/uL (1.5-6.6); NEUTROPHILS % (AUTO) 61.2 %; PLT - PLATELET COUNT 347 10^3/uL (130-450); RED BLOOD COUNT 4.38 10^6/uL (4.20-5.40); RED CELL DISTRIBUTION WIDTH 12.9 % (12.0-15.0); WHITE BLOOD COUNT 6.8 x10^3/uL (4.8-10.8)
[2022-05-19 09:32] LABS: ALBUMIN 4.2 g/dL (3.2-5.5); ALBUMIN/GLOBULIN RATIO 1.4 (1.0-2.2); CALCIUM 8.9 mg/dL (8.5-10.3); CREATININE 0.7 mg/dL (0.4-1.0); TOTAL PROTEIN 7.1 g/dL (6.7-8.2)
[2022-05-19 09:45] LABS: THYROID STIMULATING HORMONE 1.37 uIU/mL (0.34-5.60)
== END 2022-05-19 08:40 | disposition home or self-care (01) ==
LOC: LAB 08:39
PROVIDERS: ATTEND Nurse Practitioner
DX: R42 Dizziness and giddiness (principal); F41.1 Generalized anxiety disorder; M79.604 Pain in right leg
CPT/HCPCS: 36415; 80053; 84443; 85025; 85379

== ENCOUNTER 2022-06-28 15:45 | Outpatient (CLI) | payer OTHER ==
[2022-06-28 21:05] LABS: BASOPHILS % (AUTO) 0.4 %; EOSINOPHILS # (AUTO) 0.1 10^3/uL (0.0-0.7); EOSINOPHILS % (AUTO) 0.7 %; HCT - HEMATOCRIT 40.5 % (37.0-47.0); LYMPHOCYTES # (AUTO) 3.7 10^3/uL (1.5-3.5); LYMPHOCYTES % (AUTO) 34.7 %; MEAN CORPUSCULAR HEMOGLOBIN 29.7 pg (27.0-31.0); MEAN CORPUSCULAR HGB CONC 32.1 g/dL (32.0-36.0); MEAN CORPUSCULAR VOLUME 92.7 fL (81.0-99.0); MEAN PLATELET VOLUME 11.3 fL (7.9-10.8); MONOCYTES # (AUTO) 0.8 10^3/uL (0.0-1.0); MONOCYTES % (AUTO) 7.3 %; NEUTROPHILS # (AUTO) 6.1 10^3/uL (1.5-6.6); NEUTROPHILS % (AUTO) 56.7 %; PLT - PLATELET COUNT 372 10^3/uL (130-450); RED BLOOD COUNT 4.37 10^6/uL (4.20-5.40); RED CELL DISTRIBUTION WIDTH 12.6 % (12.0-15.0); WHITE BLOOD COUNT 10.7 x10^3/uL (4.8-10.8)
[2022-06-28 21:21] LABS: ALBUMIN 4.4 g/dL (3.2-5.5); ALBUMIN/GLOBULIN RATIO 1.4 (1.0-2.2); BILIRUBIN,TOTAL 1.1 mg/dL (0.2-1.0); CALCIUM 9.2 mg/dL (8.5-10.3); CREATININE 0.7 mg/dL (0.4-1.0); CRP - C-REACTIVE PROTEIN 1.4 mg/dL (0-1.0); TOTAL PROTEIN 7.5 g/dL (6.7-8.2)
[2022-06-28 21:30] LABS: FREE T3 3.22 pg/mL (2.5-3.9)
[2022-06-28 21:31] LABS: FREE T4 (FREE THYROXINE) 0.74 ng/dL (0.58-1.64)
== END 2022-06-28 16:00 | disposition home or self-care (01) ==
LOC: LAB.N 15:45
PROVIDERS: ATTEND Registered Nurse
DX: E04.9 Nontoxic goiter, unspecified (principal); L04.9 Acute lymphadenitis, unspecified
CPT/HCPCS: 36415; 80053; 84439; 84443; 84481; 85025; 86140

== ENCOUNTER 2022-07-02 17:20 | Emergency (ER) | payer OTHER ==
[2022-07-02] MEDS ORDERED: KETOROLAC 10 MG TABLET PO STA (17:59)
--- NOTE | 2022-07-02 18:24 | ED Physician Documentation ---
History of Present Illness - Stated complaint Stated Complaint: LUMP ON HEAD/ HEADACHE - Chief complaint Chief Complaint: General - History obtained from History obtained from: Patient - History of Present Illness Timing: Today - Additonal information Additional information: 46-year-old female presents the emergency department with a headache today. She states that it is on the right side of her head. She states that it was a max of 7 out of 10. Has not taken anything for this. She states that she has a itching bump on her head for which she was prescribed Augmentin and fluconazole recently. Headache was gradual in onset. No trauma. No fevers. No chills. No neck pain. She states she was told she has enlarged lymph nodes as well and has an ultrasound scheduled for Monday. Review of Systems Constitutional: denies: Fever, Chills GI: denies: Vomiting, Diarrhea Musculoskeletal: denies: Neck pain, Back pain Neurologic: denies: Headache PD PAST MEDICAL HISTORY - Past Medical History Past Medical History: Yes Other Past Medical History: Psoriatic arthritis - Past Surgical History Past Surgical History: No - Present Medications Home Medications: Ambulatory Orders Medication Instructions Recorded Confirmed Adalimumab [Humira] 12/24/17 Methotrexate Sodium/Pf mg IJ 12/24/17 [Methotrexate 25 mg/ml Vial] Naltrexone HCl 12/24/17 buPROPion HCL [Bupropion HCl Sr] 12/24/17 - Allergies Allergies/Adverse Reactions: Allergies Allergy/AdvReac Type Severity Reaction Status Date / Time No Known Drug Allergies Allergy Verified 07/02/22 17:35 - Social History Does the pt smoke?: No Smoking Status: Never smoker Does the pt drink ETOH?: No Does the pt have substance abuse?: No - Immunizations Immunizations are current?: Yes - POLST Patient has POLST: No PD ED PE NORMAL - Vitals Vital signs reviewed: Yes - General General: Alert and oriented X 3, No acute distress - HEENT HEENT: PERRL, Other (No tenderness to palpation over the temporal artery. Has a small area of scaly skin to the right frontal scalp.) - Neck Neck: Supple, no meningeal sign, Other (Bilateral posterior cervical lymphadenopathy.) - Cardiac Cardiac: RRR, Strong equal pulses - Respiratory Respiratory: No respiratory distress, Clear bilaterally - Abdomen Abdomen: Soft, Non tender, Non distended - Derm Derm: Warm and dry - Neuro Neuro: Alert and oriented X 3 - Psych Psych: Normal mood, Normal affect Results - Vitals Vitals: Vital Signs - 24 hr 07/02/22 07/02/22 17:24 18:49 Temperature 36.9 C Heart Rate 120 H 82 Respiratory 20 16 Rate Blood Pressure 161/89 H 143/70 H O2 Saturation 98 95 Oxygen O2 Source Room air PD Medical Decision Making - ED course Complexity details: considered differential, d/w patient ED course: Patient with a small patch of seborrheic dermatitis to the top of the head. She is on antifungals for this already. Headache was gradual in onset. No evidence of subarachnoid hemorrhage, tumor, mass. No indication for emergent neuroimaging. Pain improved with oral pain medications here. No evidence of meningitis, encephalitis. Patient counseled regarding signs and symptoms for which I believe and urgent re-evaluation would be necessary. Patient with good understanding of and agreement to plan and is comfortable going home at this time This document was made in part using voice recognition software. While efforts are made to proofread this document, sound alike and grammatical errors may occur. Departure - Departure Disposition: 01 Home, Self Care Clinical Impression: Seborrheic dermatitis, Lymphadenopathy Condition: Good Instructions: Seborrheic Dermatitis Follow-Up: Rizwana Ivan PA-C [Primary Care Provider] - Within 1 week Comments: Please follow-up with your doctor for further care. Return if you worsen. Please continue the current medications. If you fail to improve, they may want to prescribe an antifungal shampoo. Discharge Date/Time: 07/02/22 18:49
[2022-07-02 18:50] VITALS: BP 143/70
== END 2022-07-02 18:49 | disposition home or self-care (01) ==
LOC: ED 17:20
DX: L21.9 Seborrheic dermatitis, unspecified (principal); R59.1 Generalized enlarged lymph nodes; R51.9 Headache, unspecified
CPT/HCPCS: 99282; 99283; A9270

== ENCOUNTER 2022-07-05 11:54 | Outpatient (CLI) | payer OTHER ==
--- NOTE | 2022-07-06 09:10 | XRAY Report ---
PROCEDURE: Chest 2 View X-Ray INDICATIONS: LYPHADENTITIS ACUTE TECHNIQUE: 2 views of the chest were acquired. COMPARISON: None. FINDINGS: Surgical changes and devices: None. Lungs and pleura: No pleural effusions or pneumothorax. Lungs are clear. Mediastinum: Mediastinal contours are normal. Heart size is normal. Bones and chest wall: No suspicious bony abnormalities. Soft tissues appear unremarkable. IMPRESSION: No acute cardiopulmonary abnormality. Reviewed by: Harry Naik MD on 07/06/2022 9:09 AM [facility] Approved by: Harry Naik MD on 07/06/2022 9:09 AM [facility] Station ID: [id number]
--- NOTE | 2022-07-06 10:12 | Ultrasound Report ---
PROCEDURE: Head or Neck Soft Tissue INDICATIONS: ENLARGED THYROID,MASS OF SCALP TECHNIQUE: Real-time scanning was performed of the thyroid gland, with image documentation. COMPARISON: None FINDINGS: Right: Thyroid lobe measures 4.9 x 1.5 x 1.5 cm, and is homogeneous in echotexture. Left: Thyroid lobe measures 4.4 x 1.7 x 1.2 cm, and is homogenous in echotexture. Isthmus: 2 mm thick. No discrete thyroid nodules identified. Multiple prominent but otherwise morphologically unremarkable lymph nodes identified within the soft tissues of the neck, right side larger than left. Manager Er right level 2 lymph node measures 1. 3 x 1.9 x 0.9 cm. No sonographic abnormality identified within the superficial soft tissues at the pa tient indicated area of concern at the right anterior scalp. IMPRESSION: 1. No thyroid nodule identified. 2. Multiple prominent cervical lymph nodes visualized, nonspecific. Clinical correlation is recommend ed. 3. No sonographic abnormality identified within the superficial soft tissues at the patient indicated area of concern at the right anterior scalp. Reviewed by: Harry Naik MD on 07/06/2022 10:11 AM PST Approved by: Harry Naik MD on 07/06/2022 10:11 AM PST Station ID: [id number]
== END 2022-07-05 11:55 | disposition home or self-care (01) ==
LOC: DI 11:54
PROVIDERS: ATTEND Registered Nurse
DX: E04.9 Nontoxic goiter, unspecified (principal); L04.9 Acute lymphadenitis, unspecified; R22.0 Localized swelling, mass and lump, head

== ENCOUNTER 2022-10-31 14:52 | Outpatient (CLI) | payer OTHER ==
--- NOTE | 2022-11-01 12:08 | Mammography Report ---
BILATERAL DIGITAL SCREENING MAMMOGRAM 3D/2D: 10/31/2022 CLINICAL: Routine screening. Comparison is made to exams dated: 12/14/2020 mammogram and 12/04/2018 mammogram - [facility]. Both breasts are heterogeneously dense, which may obscure small masses (category c / 51-75% glandular tissue). No significant masses, calcifications, or other findings are seen in either breast. There has been no significant interval change. IMPRESSION: NEGATIVE There is no mammographic evidence of malignancy. A 1 year screening mammogram is recommended. Based on the Tyrer Cuzick model (a risk assessment model) the patients lifetime risk is 11.1% and he r 10 year risk is 2.1%. According to the ACR, ACS, and NCCN guidelines, an annual breast MRI exam ethel ng with mammogram is recommended if the patients lifetime risk is 20% or greater. This exam was interpreted at Station ID: [id number]. NOTE: For mammograms, a report in lay terms will be sent to the patient. Approximately 15% of breast malignancies will not be visualized mammographically. In the management of a palpable breast mass, a negative mammogram must not discourage biopsy of a clinically suspicious lesion. Electronically Signed By: Bladimir brunner/penrad:11/01/2022 08:05:50 ACR BI-RADS Category 1: Negative 3341F PARENCHYMAL PATTERN: (D) - The breast(s) demonstrate(s) heterogeneously dense fibroglandular miguelina jamison. BI-RADS CATEGORY: (1) - 1 Mammogram [id number] 1 year screening LATERALITY: (B)
== END 2022-10-31 14:53 | disposition home or self-care (01) ==
LOC: DI 14:52
DX: Z12.31 Encounter for screening mammogram for malignant neoplasm of breast (principal)

== ENCOUNTER 2022-12-19 08:00 | Outpatient (CLI) | payer OTHER ==
[2022-12-19 07:29] LABS: ALBUMIN 4.5 g/dL (3.2-5.5); ALBUMIN/GLOBULIN RATIO 1.8 (1.0-2.2); BILIRUBIN,TOTAL 1.5 mg/dL (0.2-1.0); CALCIUM 9.6 mg/dL (8.5-10.3); CREATININE 0.8 mg/dL (0.6-1.3); POTASSIUM 4.3 mmol/L (3.5-4.5)
[2022-12-19 07:33] LABS: BASOPHILS # (AUTO) 0.1 10^3/uL (0.0-0.1); BASOPHILS % (AUTO) 0.7 %; EOSINOPHILS % (AUTO) 0.6 %; HCT - HEMATOCRIT 40.7 % (37.0-47.0); HGB - HEMOGLOBIN 13.5 g/dL (12.0-16.0); LYMPHOCYTES # (AUTO) 2.5 10^3/uL (1.5-3.5); LYMPHOCYTES % (AUTO) 36.2 %; MEAN CORPUSCULAR HEMOGLOBIN 30.7 pg (27.0-31.0); MEAN CORPUSCULAR HGB CONC 33.2 g/dL (32.0-36.0); MEAN CORPUSCULAR VOLUME 92.5 fL (81.0-99.0); MEAN PLATELET VOLUME 11.3 fL (7.9-10.8); MONOCYTES # (AUTO) 0.6 10^3/uL (0.0-1.0); NEUTROPHILS # (AUTO) 3.7 10^3/uL (1.5-6.6); NEUTROPHILS % (AUTO) 54.2 %; PLT - PLATELET COUNT 393 10^3/uL (130-450); RED CELL DISTRIBUTION WIDTH 12.8 % (12.0-15.0); WHITE BLOOD COUNT 6.9 x10^3/uL (4.8-10.8)
== END 2022-12-19 23:59 | disposition home or self-care (01) ==
LOC: LAB 08:00
PROVIDERS: ATTEND Internal Medicine Rheumatology
DX: L40.50 Arthropathic psoriasis, unspecified (principal)
CPT/HCPCS: 36415; 80053; 85025; 85651

== ENCOUNTER 2023-11-07 06:34 | Outpatient (CLI) | payer OTHER ==
[2023-11-07 07:18] LABS: ALBUMIN 4.2 g/dL (3.2-5.5); ALBUMIN/GLOBULIN RATIO 1.6 (1.0-2.2); ALKALINE PHOSPHATASE 52 IU/L (42-121); ALT ALANINE AMINOTRANSFERASE 15 IU/L (10-60); AST ASPARTATE AMINOTRANSFERASE 14 IU/L (10-42); BILIRUBIN,TOTAL 0.7 mg/dL (0.2-1.0); BUN - BLOOD UREA NITROGEN 10 mg/dL (6-20); CALCIUM 9.3 mg/dL (8.5-10.3); CARBON DIOXIDE - CO2 29 mmol/L (21-32); CHLORIDE 105 mmol/L (101-111); CHOL/HDL RATIO 3.6 (<4.4); CHOLESTEROL 219 mg/dL; CREATININE 0.7 mg/dL (0.6-1.3); GFR - MDRD 90 (>89); GLUCOSE 105 mg/dL (74-104); HDL CHOLESTEROL 61 mg/dL; LDL CHOLESTEROL,CALCULATED 144 mg/dL; LDL/HDL RATIO 2.4 (<4.4); POTASSIUM 4.1 mmol/L (3.5-4.5); SODIUM 137 mmol/L (135-145); TOTAL PROTEIN 6.8 g/dL (6.4-8.9); TRIGLYCERIDES 68 mg/dL (48-352); VLDL CHOLESTEROL 14 mg/dL
[2023-11-07 07:19] LABS: THYROID STIMULATING HORMONE 1.04 uIU/mL (0.34-5.60)
[2023-11-07 07:22] LABS: BASOPHILS # (AUTO) 0.1 10^3/uL (0.0-0.1); BASOPHILS % (AUTO) 0.6 %; EOSINOPHILS # (AUTO) 0.1 10^3/uL (0.0-0.7); EOSINOPHILS % (AUTO) 0.9 %; HCT - HEMATOCRIT 39.6 % (37.0-47.0); HGB - HEMOGLOBIN 12.8 g/dL (12.0-16.0); LYMPHOCYTES # (AUTO) 2.6 10^3/uL (1.5-3.5); LYMPHOCYTES % (AUTO) 31.6 %; MEAN CORPUSCULAR HEMOGLOBIN 29.8 pg (27.0-31.0); MEAN CORPUSCULAR HGB CONC 32.3 g/dL (32.0-36.0); MEAN CORPUSCULAR VOLUME 92.1 fL (81.0-99.0); MEAN PLATELET VOLUME 11.2 fL (7.9-10.8); MONOCYTES # (AUTO) 0.5 10^3/uL (0.0-1.0); NEUTROPHILS # (AUTO) 4.9 10^3/uL (1.5-6.6); NEUTROPHILS % (AUTO) 60.8 %; PLT - PLATELET COUNT 365 10^3/uL (130-450); RED CELL DISTRIBUTION WIDTH 13.1 % (12.0-15.0); WHITE BLOOD COUNT 8.1 x10^3/uL (4.8-10.8)
== END 2023-11-07 06:35 | disposition home or self-care (01) ==
LOC: LAB 06:34
PROVIDERS: ATTEND Internal Medicine Rheumatology
DX: Z00.00 Encounter for general adult medical examination without abnormal findings (principal); L40.59 Other psoriatic arthropathy; E78.5 Hyperlipidemia, unspecified
CPT/HCPCS: 36415; 80053; 80061; 83721; 84443; 85025

== ENCOUNTER 2023-12-01 08:10 | Outpatient (CLI) | payer OTHER ==
--- NOTE | 2023-12-01 21:50 | Ultrasound Report ---
PROCEDURE: Abdomen Limited INDICATIONS: RUQ AND PAIN TECHNIQUE: Real-time focused scanning was performed of the abdomen, with image documentation. COMPARISONS: None. FINDINGS: Liver: Liver is normal in size and heterogeneous in echotexture. No gross solid-appearing hepatic le anushka is seen. Gallbladder: Mobile echogenic focus measures 1.4 x 0.7 x 1.7 cm is seen in dependent portion of gallb ladder lumen. Borderline gallbladder wall thickening measures up to 4 mm in thickness. No pericholecy stic fluid or sonographic Miles sign. Biliary ducts: Intrahepatic bile ducts are non-dilated. Extrahepatic bile duct caliber measures 2 m m. Normal is 6-7 mm or less in diameter, or 10 mm or less post-cholecystectomy. Pancreas: Visualized portions of the pancreas are sonographically normal. Right kidney: Normal in size and echotexture. Right kidney measures 10.1 cm long. No hydronephrosis or nephrolithiasis. No solid masses. No complex renal cystic lesions which require follow-up. IVC: Intrahepatic inferior vena cava is patent. Miscellaneous: No free abdominal fluid. IMPRESSION: 1. Hepatic steatosis, no discrete hepatic lesion. 2. Cholelithiasis. Borderline gallbladder wall thickening. No sonographic evidence of acute cholecyst itis, chronic cholecystitis cannot be entirely excluded. 3. No biliary ductal dilatation. Reviewed by: Rom Guerra MD on 12/01/2023 9:49 PM PDT Approved by: Rom Guerra MD on 12/01/2023 9:49 PM PDT Station ID: [id number]
== END 2023-12-01 08:11 | disposition home or self-care (01) ==
LOC: DI 08:10
PROVIDERS: ATTEND Physician Assistant Medical
DX: K80.20 Calculus of gallbladder without cholecystitis without obstruction (principal); K76.0 Fatty (change of) liver, not elsewhere classified

== ENCOUNTER 2023-12-01 08:13 | Outpatient (CLI) | payer OTHER ==
--- NOTE | 2023-12-04 10:38 | Mammography Report ---
BILATERAL DIGITAL SCREENING MAMMOGRAM 3D/2D: 12/01/2023 CLINICAL: Routine screening. Comparison is made to exams dated: 10/31/2022 mammogram, 12/14/2020 mammogram, and 12/04/2018 mammogram - [facility]. Both breasts are heterogeneously dense, which may obscure small masses (category c / 51-75% glandular tissue). No significant masses, calcifications, or other findings are seen in either breast. There has been no significant interval change. IMPRESSION: NEGATIVE There is no mammographic evidence of malignancy. A 1 year screening mammogram is recommended. Based on the Tyrer Cuzick model (a risk assessment model) the patient's lifetime risk is 11.2% and he r 10 year risk is 2.3%. According to the ACR, ACS, and NCCN guidelines, an annual breast MRI exam ethel ng with mammogram is recommended if the patient's lifetime risk is 20% or greater. This exam was interpreted at Station ID: [id number]. NOTE: For mammograms, a report in lay terms will be sent to the patient. Approximately 15% of breast malignancies will not be visualized mammographically. In the management of a palpable breast mass, a negative mammogram must not discourage biopsy of a clinically suspicious lesion. Electronically Signed By: Harry guillen/wagner:12/01/2023 12:45:09 letter sent: No_Letter ACR BI-RADS Category 1: Negative 3341F PARENCHYMAL PATTERN: (D) - The breast(s) demonstrate(s) heterogeneously dense fibroglandular miguelina jamison. BI-RADS CATEGORY: (1) - 1 RECOMMENDATION: (ANNUAL) - Recommend routine annual screening mammography. [id number] 1 year screening LATERALITY: (B)
== END 2023-12-01 08:14 | disposition home or self-care (01) ==
LOC: DI 08:13
PROVIDERS: ATTEND Nurse Practitioner
DX: Z12.31 Encounter for screening mammogram for malignant neoplasm of breast (principal); R92.333 Mammographic heterogeneous density, bilateral breasts

== ENCOUNTER 2024-01-08 07:31 | Day surgery (SDC) | payer OTHER ==
[2024-01-08] MEDS ORDERED: ceFAZolin 2 GM VIAL ONE (07:35)
[2024-01-08] MEDS: ACETAMINOPHEN 500 MG TABLET PO ONE (07:41)
[2024-01-08] MEDS: CELECOXIB 100 MG CAPSULE PO ONE (07:43)
[2024-01-08] MEDS ORDERED: metroNIDAZOLE 500 MG/100 ML 500 MG/100 ML BAG ONE (07:47)
[2024-01-08] MEDS ORDERED: ROCURONIUM 50 MG/5 ML VIAL ONE ×2 (07:49→09:53)
[2024-01-08] MEDS ORDERED: PROPOFOL 200 MG/20 ML VIAL IVP ONE (07:49)
[2024-01-08] MEDS ORDERED: MIDAZOLAM 2 MG/2 ML VIAL ONE (07:50)
[2024-01-08] MEDS ORDERED: fentaNYL 100 MCG/2 ML VIAL ONE (07:50)
[2024-01-08 07:54] LABS: HCG UR QUAL NEGATIVE
[2024-01-08] MEDS ORDERED: LIDOCAINE 1%-EPI 1:100000 20 ML MDV ONE (08:16)
[2024-01-08] MEDS ORDERED: iohexoL-240 10 ML VIAL IVP ONE ×2 (08:16→10:12)
[2024-01-08] MEDS ORDERED: BUPIVACAINE 0.5% PF 10 ML VIAL ONE (08:17)
--- NOTE | 2024-01-08 08:25 | ANESTHESIA ---
Pre-Anesthesia VS, & Labs - Diagnosis CHRONIC CHOLECYSTITIS - Procedure LAPAROSCOPIC CHOLECYSTECTOMY WITH IOC Vital Signs: Temp Pulse Resp BP Pulse Ox O2 Flow Rate 36.6 C 83 14 115/78 99 01/08/24 07:40 01/08/24 07:40 01/08/24 07:40 01/08/24 07:40 01/08/24 07:40 Height: 5 ft 3 in Weight (kg): 87.7 kg Body Mass Index: 34.2 BMI Classification: Obese - NPO >8 hours (BLACK COFFEE AT 0500) - Is Patient ?: No Home Medications and Allergies Home Medications: Ambulatory Orders Adalimumab-Atto [Amjevita Autoinjector] 40 mg SUBQ ONCE 12/28/23 Buspirone HCl 10 mg PO BID 12/28/23 Estrogen,Con/M-Progest Acet [Prempro 0.3 mg-1.5 mg Tablet] 1 each PO DAILY 12/28/23 Omeprazole 20 mg PO DAILY 12/28/23 Naltrexone HCl 50 mg PO BID 12/24/17 buPROPion HCL [Bupropion HCl Sr] 100 mg PO DAILY 12/24/17 Adalimumab-Atto [Amjevita Autoinjector] 40 mg SUBQ ONCE 12/28/23 Buspirone HCl 10 mg PO BID 12/28/23 Estrogen,Con/M-Progest Acet [Prempro 0.3 mg-1.5 mg Tablet] 1 each PO DAILY 12/28/23 Omeprazole 20 mg PO DAILY 12/28/23 Allergies/Adverse Reactions: Allergies Allergy/AdvReac Type Severity Reaction Status Date / Time No Known Drug Allergies Allergy Verified 07/02/22 17:35 Anes History & Medical History - Anesthetic History Anesthesia Complications: reports: No previous complications Family history of Anesthesia Complications: Denies Family history of Malignant Hyperthermia: Denies - Medical History Cardiovascular: reports: Arrhythmia Pulmonary: reports: None Gastrointestinal: reports: GERD Urinary: reports: Kidney stones Neuro: reports: None Musculoskeletal: reports: Other Endocrine/Autoimmune: reports: None Blood Disorders: reports: None Skin: reports: Psoriasis Smoking Status: Never smoker Psychosocial: reports: Alcohol (SOBER SINCE 2015), Cannabis (STOPPED EDIBLES 6 WKS AGO) History of Cancer?: No - Surgical History Cardiothoracic: reports: Cardiac catheterization Results - EKG Results EKG Comparison: Reviewed EKG, Normal EKG Exam General: Alert, Oriented x3, Cooperative, No acute distress Dental: WNL Mouth Openin Fingerbreadth Mallampati classification: III Thyromental Distance: 4-6 cm Mental/Cognitive Status: Alert/Oriented X3, Normal for patient Cognitive Status: Within normal limits Plan Anesthesia Type: General Consent for Procedure(s) Verified and Reviewed: Yes Code Status: Attempt Resuscitation ASA classification: 2-Mild systemic disease Is this case an emergency?: No
[2024-01-08] MEDS ORDERED: KETAMINE 200 MG/20 ML VIAL ONE (09:08)
[2024-01-08] MEDS ORDERED: DEXAMETHASONE 4 MG/ML VIAL ONE (09:18)
[2024-01-08] MEDS ORDERED: HYDROmorphone 1 MG/ML CARPUJECT ONE (09:54)
[2024-01-08] MEDS ORDERED: SUGAMMADEX 200 MG/2 ML VIAL IVP ONE (10:25)
[2024-01-08] MEDS: iohexoL-240 10 ML VIAL IVP ONE (10:30)
[2024-01-08] MEDS: LIDOCAINE 1%-EPI 1:100000 50 ML VIAL SUBQ ONE (10:35)
[2024-01-08] MEDS: BUPIVACAINE 0.5% PF 30 ML VIAL INFIL ONE (10:35)
[2024-01-08] MEDS: LACTATED RINGERS 1,000 ML IV ONE ×2 (10:52→12:00)
[2024-01-08] MEDS ORDERED: ONDANSETRON 4 MG/2 ML VIAL IVP PRN ×2 (10:53→11:11)
[2024-01-08] MEDS ORDERED: ACETAMINOPHEN 325 MG TABLET PO PRN (10:53)
[2024-01-08] MEDS ORDERED: oxyCODONE 5 MG TABLET PO PRN ×2 (10:53)
[2024-01-08] MEDS ORDERED: IBUPROFEN 600 MG TABLET PO PRN (10:53)
[2024-01-08] MEDS ORDERED: HYDROmorphone 0.5 MG/0.5 ML SYRINGE IVP PRN (10:53)
--- NOTE | 2024-01-08 10:59 | OPERATIVE REPORT ---
Operative Report - General Procedure Date: 01/08/24 Planned Procedure: Laparoscopic cholecystectomy with cholangiogram, possible open Pre-Op Diagnosis: 1. Chronic cholecystitis Procedure Performed: Laparoscopic cholecystectomy with cholangiogram Post Op Diagnosis: 1. Chronic cholecystitis - Procedure Note Primary Surgeon: Dr. Preethi Parry Secondary Surgeon: None Anesthesia Provider: Earline Garcia CRNA Anesthesia Technique: General ET tube, Local Pathology: gallbladder and contents Estimated Blood Loss (mL): 10 Indications: Patient has had episodic right upper quadrant abdominal pain on a daily basis for the last couple of months. Her pain is made worse with fatty foods. She denies any nausea, vomiting, fevers, or chills. Ultrasound demonstrates gallstones. The patient was seen and evaluated in the clinic. I discussed the natural history of acute cholecystitis with the patient. We also discussed the risks, benefits, and alternatives of laparoscopic cholecystectomy with cholangiogram and possible open procedure. We discussed surgical risks including bleeding, infection, and damage to surrounding structures. We also discussed the intraoperative and postoperative plan including the possible need for drain placement and possibility of an open procedure. The patient voiced understanding, her questions were answered, and she wished to proceed with surgery. A consent was signed by the patient. Findings: 1.Gallstone 2. Chronic cholecystitis Complications: None - Other Other Information/Narrative: The patient was brought to the operative suite and placed in the supine position. General endotracheal anesthesia was induced. Preoperative antibiotics were given. ERAS protocol was followed. A preop surgical timeout was performed. Local anesthetic was injected into the skin and subcutaneous tissues just inferior to the umbilicus. An 11 blade scalpel was used to make a 5 mm transverse skin incision in this location. Next, a hemostat was used to spread the tissues down to the level of the fascia and a Lisa clamp was used to grasp and elevate the umbilical stalk. A Varess needle was used to gain access to the peritoneal space. Low flow insufflation revealed low pressures and then high flow insufflation was undertaken to 15 mmHg. Next, the Varess needle was removed and a 5 mm laparoscopic port was inserted in this location. Through this port, a 5 mm 30 degree laparoscope was inserted. On inspection of the abdomen no injury was caused on entry. Next, the patient was placed in reverse Trendelenburg and rotated slightly to the left. Two 5 mm ports were inserted in the right upper quadrant, one in the anterior axillary line and the other in the midclavicular line. Also, a 12 mm port was inserted in the subxiphoid region. All ports were placed by first anesthetizing the skin and subcutaneous tissues with local anesthetic, then by making an appropriate length incision with an 11 blade scalpel, and finally by placing the port under direct laparoscopic vision. Once the ports were in place, a ratcheted, toothed grasper was used to elevate the fundus of the gallbladder toward the patient's right shoulder. Next, the peritoneum was incised starting at the hilum of the gallbladder and working toward the fundus along the gallbladder liver interface on the medial and lateral aspects of the gallbladder. Next, attention was returned to the hilum of the gallbladder. The alveolar tissues in this region were taken down with blunt and sharp dissection with electrocautery taking great care not to cauterize though any tissue I could not easily see through. Two ductal structures were isolated and skeletonized such that each ductal structure could be visualized with liver present on either side. The cystic plate was also developed. At this time, it was felt that a critical view of safety had been obtained. Pictures were taken from both the medial and lateral perspective demonstrating 2 ductal structures in the cystic plate. Next, a clip was placed distally, that is toward the gallbladder, on the cystic duct and just proximal to this a ductotomy was performed. A cholangiogram catheter was placed within the duct and it was flushed with saline. There was no leakage and it flushed easily. Clips were also placed proximally and distally on the cystic artery. Full strength Isovue dye was then placed on the cholangiogram catheter and a cholangiogram was performed. The cholangiogram appeared normal. There was good filling of the right and left hepatic system as well as the du odenum and common bile duct. There were no filling defects. Next the cholangiogram catheter was removed. Two clips were placed proximally on the cystic duct. The cystic duct and cystic artery were divided using laparoscopic scissors between the clips. Next the gallbladder was dissected off of the liver bed. Once it was completely freed, the gallbladder was placed in an Endo Catch bag and removed through the epigastric port. The epigastric port was replaced and suction and irrigation were used to remove any fluid from the right upper quadrant. This was done until the fluid returned was clear. Next, quarter percent Marcaine with epinephrine in the amount of 10 mL was infused into the right upper quadrant along the liver diaphragm interface to reduce to postoperative pain. Next, a laparoscopic fascial closure device was used to place a single interrupted 0 Vicryl suture at the epigastric port. This reapproximated the fascia well. The remaining ports were removed under direct laparoscopic vision and the abdomen was deflated. Next, the skin edges were reapproximated with 4-0 Monocryl in an interrupted subcuticular fashion. A sterile dressing of skin glue was placed. The patient tolerated the procedure well. The patient was extubated in the operating room and transferred to the recovery room in stable condition. There were no complications.
[2024-01-08] MEDS ORDERED: fentaNYL 100 MCG/2 ML VIAL IVP PRN (11:11)
[2024-01-08] MEDS ORDERED: NALOXONE 0.4 MG/ML VIAL IVP PRN (11:11)
[2024-01-08] MEDS ORDERED: ePHEDrine 50 MG/ML VIAL IVP PRN (11:11)
[2024-01-08] MEDS ORDERED: ATROPINE ABBOJECT 1 MG/10 ML SYRINGE IVP PRN (11:11)
[2024-01-08] MEDS ORDERED: ONDANSETRON 4 MG/2 ML VIAL ONE (11:41)
[2024-01-08] MEDS: ONDANSETRON 4 MG/2 ML VIAL ONE (11:44)
[2024-01-08] MEDS ORDERED: LACTATED RINGERS 1,000 ML IV SCH (12:00)
[2024-01-08 13:41] VITALS: BP 122/62; O2SAT 96
--- NOTE | 2024-01-08 15:16 | ANESTHESIA POST OP EVALUATION ---
Anesthesia Post Eval - Post Anesthesia Eval Vitals: Last Vital Signs Temp 37 C 01/08/24 11:22 Pulse 60 01/08/24 12:45 Resp 16 01/08/24 12:45 BP 122/62 01/08/24 12:45 Pulse Ox 96 01/08/24 12:45 O2 Flow Rate CV Function Including HR & BP: Stable Pain Control: Satisfactory Nausea & Vomiting: Negative Mental Status: Baseline Respiratory Status: Airway Patent Hydration Status: Satisfactory Anesthesia Complications: None
--- NOTE | 2024-01-08 16:39 | XRAY Report ---
PROCEDURE: OR C-Arm Procedure INDICATIONS: LAP JYOTI WITH IOC FLUORO TIME: 000.2 TECHNIQUE: Fluoroscopic images submitted following a cholecystectomy. COMPARISON: None. FINDINGS: No filling defects within the opacified biliary tree. IMPRESSION: No filling defects within the opacified biliary tree. Reviewed by: Elvin Rascon MD on 01/08/2024 4:38 PM PDT Approved by: Elvin Rascon MD on 01/08/2024 4:38 PM PDT Station ID: [id number]
== END 2024-01-08 07:32 | disposition home or self-care (01) ==
LOC: SDS 07:31
PROVIDERS: ATTEND Surgery
PROC: 0FT44ZZ Resection of Gallbladder, Percutaneous Endoscopic Approach (ICD-10-PCS; principal; 2024-01-08 08:45)
DX: K80.10 Calculus of gallbladder with chronic cholecystitis without obstruction (principal); E66.9 Obesity, unspecified; Z68.34 Body mass index [BMI] 34.0-34.9, adult
CPT/HCPCS: 47563; 81025; A9270; C1758; J1170; J3490; J7120; Q9966

== ENCOUNTER 2024-01-15 09:22 | Outpatient (CLI) | payer OTHER ==
--- NOTE | 2024-01-16 10:40 | XRAY Report ---
PROCEDURE: Chest 2V INDICATIONS: CHRONIC COUGH TECHNIQUE: 2 views of the chest were obtained. COMPARISON: None. FINDINGS: Surgical changes and devices: None. Lungs and pleura: No pleural effusions or pneumothorax. Lungs are clear. Mediastinum: Mediastinal contours appear normal. Heart size is normal. Bones and chest wall: No suspicious bony lesions. Overlying soft tissues appear unremarkable. IMPRESSION: Normal two-view chest x-ray Reviewed by: Av Henry MD on 01/16/2024 9:38 AM TRACY Approved by: Av Henry MD on 01/16/2024 9:38 AM TRACY Station ID: [id number]
== END 2024-01-15 09:23 | disposition home or self-care (01) ==
LOC: DI 09:22
PROVIDERS: ATTEND Physician Assistant Medical
DX: R05.3 Chronic cough (principal)